=== PATIENT | female | born 1995 | race Caucasian/White ===

== ENCOUNTER 2018-12-10 12:56 | Emergency (ER) | payer MEDICARE ==
[~2018-12-10] VITALS: Ht 170.2 cm; Wt 70.3 kg
[2018-12-10] MEDS ORDERED: TYLOPHEN500 MG PO (13:10)
[2018-12-10] MEDS ORDERED: IBUPROFEN600 MG PO (13:19)
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
== END 2018-12-10 13:49 | disposition home or self-care (01) ==
LOC: ED 12:56
DX: S00.83XA Contusion of other part of head, initial encounter (principal); F17.200 Nicotine dependence, unspecified, uncomplicated; Y04.0XXA Assault by unarmed brawl or fight, initial encounter
CPT/HCPCS: 99284

== ENCOUNTER 2018-12-11 12:51 | Emergency (ER) | payer MEDICARE ==
[~2018-12-11] VITALS: Ht 170.2 cm; Wt 70.3 kg
[~2018-12-11 12:51] MED LIST: IBUPROFEN600 MG PO; TYLOPHEN500 MG PO
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
== END 2018-12-11 16:25 | disposition home or self-care (01) ==
LOC: ED 12:51
DX: S00.83XA Contusion of other part of head, initial encounter (principal); F17.200 Nicotine dependence, unspecified, uncomplicated; Z79.899 Other long term (current) drug therapy; Y04.0XXA Assault by unarmed brawl or fight, initial encounter
CPT/HCPCS: 70486; 71046; 84703; 99284-25